=== PATIENT | female | born 1995 | race Caucasian/White ===

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

== ENCOUNTER 2017-05-13 08:17 | Emergency (ER) | payer OTHER ==
[2017-05-13 08:28] VITALS: BP 124/86; PULSE 104; RESP 20; TEMP 98.8; O2SAT 95
[2017-05-13] MEDS ORDERED: DEXAMETHASONE 4 MG TAB PO ONE (08:56)
--- NOTE | 2017-05-13 09:01 | EDPHY ---
H & P Stated Complaint: st/seen at [facility] mono and strep negative HPI/ROS: Chief complaint: Sore throat History of present illness: This is a 21-year-old female presents to the emergency department for a sore throat. She has a sore throat for the last week. She did go to [facility] and had a negative strep and a mono screen test on Sunday. However she feels symptoms are worsening. She is having worsening swelling in the throat making it difficult to swallow. She denies other associated signs or symptoms including no fevers, no cough or trouble breathing, no rash. - Personal History LMP (Females 10-55): Now Current Tetanus/Diphtheria Vaccine: Yes - Medical/Surgical History Hx Asthma: No Hx Chronic Respiratory Disease: No Hx Diabetes: No Hx Cardiac Disease: No Hx Renal Disease: No Hx Cirrhosis: No Hx Alcoholism: No Hx HIV/AIDS: No Hx Splenectomy or Spleen Trauma: No Other PMH: denies - Social History Smoking Status: Never smoked - Physical Exam Exam: General Appearance: Alert, nontoxic. Eyes: Pupils equal and round no injection. ENT: Tympanic membranes, external auditory canals, external easr and surrounding soft tissue including over the mastoids are unremarkable. Nasopharynx is not injected. There is no rhinorrhea. Oropharynx is injected. There is mild edema. There is moderate symmetrical tonsillar hypertrophy. There is white exudate. There is no asymmetry. The uvula is midline. No elevation of the tongue. There is no hoarseness, no drooling, no trismus, no stridor. Respiratory: Chest is non tender, lungs are clear to auscultation. Cardiac: regular rate and rhythm Musculoskeletal: Neck is supple and non tender. Extremities have full range of motion and are non tender. Skin: No rashes or lesions. Neurologic: Alert and oriented x4. No meningismus. Constitutional: Initial Vital Signs Temperature (C) 37.1 C 05/13/17 08:25 Heart Rate 104 H 05/13/17 08:25 Respiratory Rate 20 05/13/17 08:25 Blood Pressure 124/86 H 05/13/17 08:25 O2 Sat (%) 95 05/13/17 08:25 O2 Delivery Mode Room Air Allergies/Adverse Reactions: enviromental Allergy (Uncoded 05/13/17 08:25) Home Medications: Medication Instructions Recorded Wellbutrin Xl 09/08/16 ZYRTEC 09/08/16 AZITHROMYCIN [Z-PACK] 250 mg PO DAILY #6 tab 05/13/17 Dexamethasone [Decadron 4 MG (*)] 4 mg PO ONCE #1 tab 05/13/17 [place] 28 Tablet 05/13/17 Medical Decision Making ED Course/Re-evaluation: Patient seen under the supervision of my secondary supervising physician Dr. Clifford Quesada. Patient presents to the emergency department for a worsening sore throat. She appears to have an obvious tonsillitis. No evidence of complications such as abscess formation or meningitis. Given progression of symptoms and findings I will start patient on antibiotics. I have recommended a penicillin based antibiotic but she states she does not tolerate these, I will start her on a Z-Cristobal. I will symptomatically treat her with Decadron. She is to continue ibuprofen. Home care is discussed. Return precautions are given. Patient voiced understanding and agreement with plan. Differential Diagnosis: Included but not limited to pharyngitis, tonsillitis, abscess formation - Data Points Medications Given: Discontinued Medications Dexamethasone (Decadron) 10 mg PO EDNOW ONE Stop: 05/13/17 08:57 Last Admin: 05/13/17 09:00 Dose: 10 mg Departure - Departure Disposition: Home, Routine, Self-Care Clinical Impression: Acute bacterial tonsillitis Condition: Good Instructions: Tonsillitis (ED) Additional Instructions: Follow-up with [facility] this week for recheck Use ibuprofen 600 mg 3 times a day Take your 2nd dose of Decadron tomorrow If symptoms worsen or new symptoms develop return to the emergency room for recheck Referrals: NONE *PRIMARY CARE P,. [Primary Care Provider] - As per Instructions [facility] [Cl[facility]] - As per Instructions Prescriptions: AZITHROMYCIN [Z-PACK] 250 mg PO DAILY #6 tab Dexamethasone [Decadron 4 MG (*)] 4 mg PO ONCE #1 tab
== END 2017-05-13 09:12 | disposition home or self-care (01) ==
DX: J03.80 Acute tonsillitis due to other specified organisms (principal); B96.89 Other specified bacterial agents as the cause of diseases classified elsewhere